=== PATIENT | female | born 1950 | race Caucasian/White ===

== ENCOUNTER → 2017-10-01 | Outpatient (RCR) | payer MEDICARE | LOC: OT 09-23 10:09 | PROVIDERS: ATTEND Specialist | DX: S52.502D Unspecified fracture of the lower end of left radius, subsequent encounter for closed fracture with routine healing (principal); M25.532 Pain in left wrist; M25.632 Stiffness of left wrist, not elsewhere classified; R53.1 Weakness | CPT/HCPCS: 97022 ×3; 97110 ×4; 97165; G8987; G8988 ==

== ENCOUNTER 2017-10-09 08:52 | Outpatient (RCR) | payer MEDICARE | END 2017-11-01 | LOC: OT 08:52 | PROVIDERS: ATTEND Specialist | DX: S52.502D Unspecified fracture of the lower end of left radius, subsequent encounter for closed fracture with routine healing (principal); M25.532 Pain in left wrist; M25.632 Stiffness of left wrist, not elsewhere classified; R53.1 Weakness | CPT/HCPCS: 97139 ==

== ENCOUNTER → 2018-12-25 | Day surgery (SDC) | payer MEDICARE ==
[~2018-12-25] MED LIST: ALEVE220 M1; FENTANYL CITRATE/PF 100MCG/2 ML INJ ONE; LEVOTHYROXINE50 MCG PO; LIVALO1 MG; MIDAZOLAM HCL 2 MG/2 ML VIAL ONE; MULTI-VITAMIN1 EACH; NIFEDIPINE10 MG PO; PRO AIR; PROPOFOL IV EMULSION 10 MG/ML 50 ML VIAL ONE; STOOL SOFTENER50 MG
--- OUTSIDE RECORDS SUMMARY | 2018-12-25 11:59 | XMS REPORT ---
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 Allergies, Adverse Reactions, Alerts Allergy Name Allergy Type Status Severity Reaction(s) Onset Date Inactive Date Treating Clinician Comments hydrocodone DA Active U 2017-07-08 00:00:00 acetaminophen DA Active U 2017-07-08 00:00:00 indomethacin DA Active U 2017-07-08 00:00:00 naproxen DA Active U 2017-07-08 00:00:00 Medications This patient has no known medications.
--- OUTSIDE RECORDS SUMMARY | 2018-12-25 11:59 | XMS REPORT | Summary of Care ---
Author Author Ana Maria Schneider LVN Organization Unknown Address [facility] Phone Unavailable Care Team Providers Care Agent Contract Clerk Name Role Phone FRANCIS Garg, ODELL Unavailable Unavailable ARIELLE Vargas, MAC Unavailable Unavailable TIM Garg, VINCENT Unavailable Unavailable NIKOS N.P., SEVEN Unavailable Unavailable Wyatt PERERA, Ana Maria Unavailable Unavailable TIM PHELPS [place], VINCENT REESE Unavailable Unavailable MATTHEW PHELPS [place], RYANN NUNO Unavailable Unavailable NIKOS TRIPATHI, SEVEN Unavailable Unavailable Unavailable Unavailable Functional Status Name Dates Details Functional status health issues are not documented Status: Name Dates Details Cognitive status health issues are not documented Status: Problems Name Dates Details Edema (782.3, R60.9) Status: Active Allergic rhinitis (477.9, J30.9) Status: Active Sacroiliitis (720.2, M46.1) Status: Active Screening for colon cancer (V76.51, Z12.11) Status: Active Lichen sclerosus (701.0, L90.0) Status: Active Encounter for mini-mental status examination Status: Active BMI 30.0-30.9,adult (V85.30, Z68.30) Status: Active Microscopic hematuria (599.72, R31.29) Status: Active Polyarthralgia (719.49, M25.50) Status: Active BMI 27.0-27.9,adult (V85.23, Z68.27) Status: Active Generalized osteoarthritis of multiple sites (715.09, M15.9) Status: Active Elevated creatine kinase (790.5, R74.8) Status: Active Acute nonintractable headache, unspecified headache type (784.0, R51) Status: Active Arthralgia of hand, left (719.44, M25.542) Status: Active Right ankle pain (719.47, M25.571) Status: Active Elevated sed rate (790.1, R70.0) Status: Active Right hand pain (729.5, M79.641) Status: Active Cellulitis, scalp, dissecting (704.8, L66.3) Status: Active Sebaceous cyst (706.2, L72.3) Status: Active Hordeolum externum of left eye, unspecified eyelid (373.11, H00.016) Status: Active Nasal vestibulitis (478.19, J34.89) Status: Active Right wrist pain (719.43, M25.531) Status: Active Ganglion cyst of wrist, right (727.41, M67.431) Status: Active 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, 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) Status: Active Venous stasis dermatitis (454.1, I87.2) Status: Active Well woman exam with routine gynecological exam (V72.31, Z01.419) Status: Active Mild intermittent asthma, uncomplicated (493.90, J45.20) Status: Active Post-menopausal (V49.81, Z78.0) Status: Active Osteoporosis screening (V82.81, Z13.820) Status: Active Need for hepatitis A vaccination (V05.3, Z23) Status: Active Osteopenia of both thighs (733.90, M85.851) Status: Active Acute upper respiratory infection (465.9, J06.9) Status: Active Vertigo (780.4, R42) Status: Active Acute tracheitis without airway obstruction (464.10, J04.10) Status: Active On potassium sparing diuretic therapy (V58.69, Z79.899) Status: Active Palmar fasciitis (728.6, M72.0) Status: Active Trigger ring finger of right hand (727.03, M65.341) Status: Active Mass of finger of right hand (782.2, R22.31) Status: Active Mass of finger of left hand (782.2, R22.32) Status: Active Acute lower UTI (599.0, N39.0) Status: Active Depression screening (V79.0, Z13.31) Status: Active At low risk for fall (V49.89, Z91.81) Status: Active Right foot pain (729.5, M79.671) Status: Active Hypertriglyceridemia (272.1, E78.1) Status: Active Urinary tract infection (599.0, N39.0) Status: Active Easy bruising (782.9, R23.8) Status: Active Mass of right foot (782.2, R22.41) Status: Active Herpes zoster (053.9, B02.9) Status: Active Mild persistent asthma without complication (493.90, J45.30) Status: Active Abnormal bone xray (793.7, R93.7) Status: Active Allergic urticaria (708.0, L50.0) Status: Active Onychomycosis of toenail (110.1, B35.1) Status: Active Need for shingles vaccine (V04.89, Z23) Status: Active Breast cancer screening (V76.10, Z12.39) Status: Active Need for influenza vaccination (V04.81, Z23) Status: Active Osteopenia (733.90, M85.80) Status: Active 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, 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) Status: Active 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, 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) Status: Active Dysuria (788.1, R30.0) Status: Active Low serum HDL (272.9, R74.8) Status: Active Contact dermatitis, allergic (692.9, L23.9) Status: Active On statin therapy (V58.69, Z79.899) Status: Active Essential (primary) hypertension (401.9, I10) Status: Active Mixed dyslipidemia (272.2, E78.2) Status: Active Hypothyroidism due to acquired atrophy of thyroid (244.8, E03.4) Status: Active Prediabetes (790.29, R73.03) Status: Active Encounter for monitoring statin therapy (V58.83, Z51.81) Status: Active On potassium wasting diuretic therapy (V58.69, Z79.899) Status: Active Elevated hemoglobin A1c measurement (790.29, R73.09) Status: Active Encounter to discuss test results (V65.49, Z71.2) Status: Active Generalized abdominal pain (789.07, R10.84) Status: Active Diarrhea, unspecified type (787.91, R19.7) Status: Active Blood in stool (578.1, K92.1) Status: Active Colon wall thickening (569.89, K63.9) Status: Active Medications Name Dates Details Levothyroxine Sodium 50 MCG Oral Tablet TAKE 1 TABLET BY MOUTH 6 DAYS A WEEK (SAT-SAT) AND 1.5 TABLETS 1 DAY A WEEK (Saturday) Quantity: 90 VINCENT DUMONT M.D. * Start : 25-Jun-2013 Active Montelukast Sodium 10 MG Oral Tablet TAKE 1 TABLET DAILY. PRN * Quantity: 90 Refills: 2 KNOTT N.P., SEVEN * Start : 05-Mar-2014 Active Flonase Allergy Relief 50 MCG/ACT Nasal Suspension USE 1 SPRAY IN EACH NOSTRIL TWICE DAILY. PRN * Quantity: 1 Refills: 3 NIKOS N.P., SEVEN * Start : 30-Oct-2014 Active 15.8 ML Bottle Aleve 220 MG Oral Capsule 2-3 tabs Twice daily. Con't dosing for 3-5 days beyond pain relief or 4 weeks ma x NEEDED * Refills: 0 ARIELLE N.P.MAC * Start : 30-Oct-2014 Active Symbicort 80-4.5 MCG/ACT Inhalation Aerosol INHALE 2 PUFFS BY MOUTH EVERY 12 HOURS. RINSE MOUTH AFTER USE * Quantity: 10.2 Refills: 0 VINCENT DUMONT M.D. * Start : 30-Sep-2018 Active ProAir HFA 108 (90 Base) MCG/ACT Inhalation Aerosol Solution INHALE 2 PUFFS EVERY 4-6 HOURS NEEDED. * Quantity: 1 Refills: 6 VINCENT DUMONT M.D. Active 8.5 GM Inhaler Voltaren 1 % Transdermal Gel APPLY TO LOWER EXTREMITIES, 4 GM OF GEL TO AFFECTED AREA 4 TIMES DAILY. DO NOT APPLY MORE THAN 16 GM DAILY TO ANY ONE AFFECTED JOINT. * Quantity: 1 Refills: 2 ODELL BLANCO M.D. * Start : 19-Jun-2016 Active 100 GM Tube Alive Womens 50+ TABS * Refills: 0 Active Shingrix 50 MCG Intramuscular Suspension Reconstituted INJECT 0.5 ML IM, please administer vaccine series per protocol * Quantity: 1 Refills: 1 VINCENT DUMONT M.D. * Start : 28-Jan-2018 Active NIFEdipine ER 30 MG Oral Tablet Extended Release 24 Hour TAKE 1 TABLET DAILY DIRECTED. * Quantity: 90 Refills: 1 TIM Garg, VINCENT * Start : 24-May-2018 Active Livalo 2 MG Oral Tablet Take half tablet daily * Quantity: 42 Refills: 0 GOODLEI Sy.Susanne., VINCENT Active Triamcinolone Acetonide 0.1 % External Ointment APPLY AND GENTLY MASSAGE INTO AFFECTED AREA(S) TWICE DAILY. * Quantity: 60 Refills: 1 NIKOS N.P., SEVEN * Start : 09-Aug-2018 Active Allergies and Adverse Reactions Name Dates Details Indocin CAPS (Allergy) Status: Active Naprosyn TABS (Allergy) Status: Active Vicodin TABS (Allergy) Status: Active Chocolate (Allergy) Status: Denied Eggs (Allergy) Status: Denied Milk (Allergy) Status: Denied Past Medical History Name Dates Details History of Acute upper respiratory infection (465.9, J06.9) Status: Resolved History of Advance care planning (V65.49, Z71.89) Status: Resolved History of Bone spur (726.91, M77.9) Status: Resolved History of Complete tear of rotator cuff (727.61, M75.120) Status: Resolved History of Depression screen (V79.0, Z13.31) Status: Resolved History of DJD (degenerative joint disease), multiple sites (715.89, M15.9) Status: Resolved History of essential hypertension (V12.59, Z86.79) Status: Resolved History of Greater trochanteric bursitis of left hip (726.5, M70.62) Status: Resolved History of Heel pain (729.5, M79.673) Status: Resolved History of Hematoma of scalp, initial encounter (920, S00.03XA) Status: Resolved History of hyperpigmentation of skin (V13.3, Z87.2) Status: Resolved History of hypothyroidism (V12.29, Z86.39) Status: Resolved History of Lumbar strain (847.2, S39.012A) Status: Resolved History of Malodorous urine (791.9, R82.90) Status: Resolved History of Myalgia and myositis (729.1) Status: Resolved History of Nail dystrophy (703.8, L60.3) Status: Resolved History of Need for pneumococcal vaccination (V03.82, Z23) Status: Resolved History of Need for vaccination with 13-polyvalent pneumococcal conjugate vaccine (V03.82, Z23) Status: Resolved History of Pain in limb (729.5, M79.609) Status: Resolved History of Pain, upper back (724.5, M54.9) Status: Resolved History of Persistent cough (786.2, R05) Status: Resolved History of Proximal leg weakness (729.89, R29.898) Status: Resolved History of Screening for diabetes mellitus (V77.1, Z13.1) Status: Resolved History of serous otitis media (V12.49, Z86.69) Status: Resolved History of Sprain of right shoulder (840.9, S43.401A) Status: Resolved History of tinea corporis (V12.09, Z86.19) Status: Resolved History of Toxicity From Vitamin B6 (963.5) Status: Resolved History of urinary frequency (V13.09, Z87.898) Status: Resolved History of Urticaria, acute (708.8, L50.8) Status: Resolved History of varicose veins of lower extremity (V12.59, Z86.79) Status: Resolved History of Well woman exam with routine gynecological exam (V72.31, Z01.419) Status: Resolved Procedures Procedure Dates Details CT Abdomen/Pelvis w contrast 28984 Date: 02-Dec-2018 History of Hysterectomy Completed Comments: Completed: Approx 1998 History of Shoulder Surgery Right Completed Comments: Completed: Approx 2004 History of Neck Surgery Completed Comments: Completed: Approx 2006 History of Cholecystectomy Completed Comments: Completed: Approx 1995 History of Neuroplasty Decompression Median Nerve At Carpal Tunnel Completed Comments: Completed: Approx 2006 Immunization Name Dates Details Pneumococcal polysaccharide vaccine, 23 valent on: 13-Jan-2009 Zoster (Zostavax) on: 23-May-2011 Tdap on: 22-Jan-2012 Prevnar 13 Intramuscular Suspension Lot #: [id number] on: 08-Oct-2014 Fluzone Quadrivalent 0.5 ML Intramuscular Suspension Lot #: [id number] on: 06-Dec-2015 Hepatitis A Lot #: [id number] on: 22-May-2016 Fluzone High-Dose 0.5 ML Intramuscular Suspension Prefilled Syringe Lot #: [id number] on: 19-Nov-2016 Hepatitis A, adult Lot #: [id number] on: 19-Nov-2016 Fluzone Quadrivalent 0.5 ML Intramuscular Suspension Lot #: [id number] on: 28-Jan-2018 Shingrix 50 MCG/0.5ML Intramuscular Suspension Reconstituted on: 02-May-2018 Shingrix 50 MCG/0.5ML Intramuscular Suspension Reconstituted on: 01-Sep-2018 Family History Name Dates Details Family history of Psoriatic arthritis (696.0, L40.50) Status: Active Name Dates Details Family history of Diabetes Mellitus (V18.0) Status: Active Name Dates Details Family history of Hypoglycemia Status: Active Family history of Acute Myocardial Infarction (V17.3) Status: Active Name Dates Details Family history of Diabetes Mellitus (V18.0) Status: Active Family history of Diabetes Mellitus (V18.0) Status: Active Social History Name Dates Details - Status: Name Dates Details Never smoker Vital Signs Date Test Result Details [id number]-[id number] Physical Findings 0 Status: Comments: Alcohol Screen - How many times in the past yr have you had 5 (for M) or 4 (for F) or 4 (for all > 65yrs) or more drinks in a day? 3-Qye-531854:46 BP Systolic 117 mm[Hg] Status: Comments: Location: LUE; Position: Sitting BP Diastolic 64 mm[Hg] Status: Comments: Location: LUE; Position: Sitting Height 61.5 in Status: Weight 161.25 lb Status: Body Mass Index Calculated 29.97 kg/m2 Status: Body Surface Area Calculated 1.73 m2 Status: Temperature 97.5 f Status: Comments: Method: Temporal Heart Rate 67 /min Status: Comments: Location: L Brachial Artery; Respiration Rate 16 /min Status: Results Date Description Value Details 7-Otz-856041:51 [O] Urine Dipstick (In Office) Glucose normal (Normal) LEUKOCYTES neg (Normal) NITRITE neg (Normal) UROBILINOGEN normal (Normal) PROTEIN neg (Normal) pH 5 URINE BLOOD trace (Normal) SPECIFIC GRAVITY 1.010 KETONES neg (Normal) BILIRUBIN normal (Normal) COLOR URINE yasir APPEARANCE clear 0-Fgg-373875:00 CT Abdomen/Pelvis w contrast 75380 Abdomen/Pelvis w contrast CT SEE NOTES Comments: Study: Abdomen/Pelvis w IV contrast CT 12/02/2018 2:00 PM CDTClinical Indication: - R19.7 Diarrhea, unspecified, R10.84 Generalizedabdominal pain;Comparison: NoneTECHNIQUE: Helical imaging was performed diaphragm through the symphysis withmultiplanar reformations obtained. CT imaging was performed with exposurecontrol parameters to reduce radiation dose.IV CONTRAST: 100cc Omnipaque 300 GI CONTRAST:CT Radiation Dose: LJM=153 mGy-cmFINDINGS:LOWER CHEST: Visualized lower lungs are clear. No pericardial or pleuraleffusion.SOLID ORGANS: Unremarkable appearance of liver, spleen, adrenal glands andpancreas. Status post cholecystectomy. The kidneys are without hydronephrosisor nephrolithiasis. Bilateral renal cortical scarring. Negative forhydronephrosis. The ureters are normal caliber and course withoutureterolithiasis.BOWEL: The small and large bowel are nonobstructed. There is abnormal softtissue in the region of the proximal ascending colon and cecum withcircumferential wall thickening. There is a few small adjacent pericecal lymphnodes. Normal appendix.PERITONEUM AND OTHER: No ascites or free air.RETROPERITONEUM: Abdominal aortic atherosclerosis without aneurysm. Smallreactive size retroperitoneal lymph nodes.PELVIS: Hysterectomy. No free fluid.MUSCULOSKELETAL: No aggressive appearing osteolytic or osteoblastic lesions.Multilevel lumbar spondylosis. Grade 1 image listhesis of L4-L5 with associatedcentral canal and foraminal narrowing.IMPRESSION:1. Marked colonic wall thickening in region of the proximal ascending colon andcecum.. Appearance is highly suspicious for neoplasm until proven otherwise.Colitis is also differential though colonoscopy is recommended exclude tumor.2. Abnormal appearance of the kidneys with cortical scarring. Appearance mayrepresent previous ischemic insult such as papillary necrosis.SL: VIDAL--Read by: Pasha Seals MDDictated Date/time: 12/02/18 16:04Electronically Signed by: Pasha Seals 12/[birth year]/1915:23FINAL REPORT [id number]:04 [[facility]] CMP W/EGFR GLUCOSE 109 mg/dl (Above high threshold) Range: 65-99 Comments: Fasting reference interval For someone without known diabetes, a glucose valuebetween 100 and 125 mg/dL is consistent withprediabetes and should be confirmed with afollow-up test. UREA NITROGEN (BUN) 11 mg/dl (Normal) Range: 7-25 CREATININE 0.64 mg/dl (Normal) Range: 0.60-0.93 Comments: For patients >49 years of age, the reference limitfor Creatinine is approximately 13% higher for peopleidentified as -[place]ij[place]. eGFR NON- 90 {ML/MIN/1.7} (Normal) Range: > OR=60 eGFR 105 {ML/MIN/1.7} (Normal) Range: > OR=60 BUN/CREATININE RATIO NOT APPLICABLE {CALC} Range: 6-22 SODIUM 136 mmol/L (Normal) Range: 135-146 POTASSIUM 4.5 mmol/L (Normal) Range: 3.5-5.3 CHLORIDE 99 mmol/L (Normal) Range: 98-110 CARBON DIOXIDE 27 mmol/L (Normal) Range: 20-32 CALCIUM 9.9 mg/dl (Normal) Range: 8.6-10.4 PROTEIN, TOTAL 8.3 g/dl (Above high threshold) Range: 6.1-8.1 ALBUMIN 4.4 g/dl (Normal) Range: 3.6-5.1 GLOBULIN 3.9 {G/DL__CALC} (Above high threshold) Range: 1.9-3.7 ALBUMIN/GLOBULIN RATIO 1.1 {CALC} (Normal) Range: 1.0-2.5 BILIRUBIN, TOTAL 0.8 mg/dl (Normal) Range: 0.2-1.2 ALKALINE PHSPHATASE 93 u/l (Normal) Range: 33-130 AST 23 u/l (Normal) Range: 10-35 ALT 19 u/l (Normal) Range: 6-29 6-Hnh-533152:04 [[facility]] CBC (INCLUDES DIFF/PLT) WHITE BLOOD CELL COUNT 13.1 {Thousand/u} (Above high threshold) Range: 3.8-10.8 RED BLOOD CELL COUNT 4.48 {Million/uL} (Normal) Range: 3.80-5.10 HEMAGLOBIN 13.3 g/dl (Normal) Range: 11.7-15.5 HEMATOCRIT 39.1 % (Normal) Range: 35.0-45.0 MCV 87.3 fL (Normal) Range: 80.0-100.0 MCH 29.7 pg (Normal) Range: 27.0-33.0 MCHC 34.0 g/dl (Normal) Range: 32.0-36.0 RDW 13.3 % (Normal) Range: 11.0-15.0 PLATELET COUNT 285 {Thousand/u} (Normal) Range: 140-400 MPV 10.2 fL (Normal) Range: 7.5-12.5 ABSOLUTE NEUTROPHILS 96549 {cells/uL} (Above high threshold) Range: 4472-1113 ABSOLUTE LYMPHOCYTES 1323 {cells/uL} (Normal) Range: 850-3900 ABSOLUTE MONOCYTES 642 {cells/uL} (Normal) Range: 200-950 ABSOLUTE EOSINOPHILS 66 {cells/uL} (Normal) Range: 15-500 ABSOLUTE BASOPHILS 26 {cells/uL} (Normal) Range: 0-200 NEUTROPHILS 84.3 % (Normal) LYMPHOCYTES 10.1 % (Normal) MONOCYTES 4.9 % (Normal) EOSINOPHILS 0.5 % (Normal) BASOPHILS 0.2 % (Normal) [id number]-[id number]:04 [[facility]] TSH, 3RD GENERATION W/REFLEX TO FT4 TSH, 3RD GENERATION W/REFLEX TO FT4 3.27 {MIU/L} (Normal) Range: 0.40-4.50 Plan of Care Name Dates Details Planned Observations Planned Goals not documented Planned Encounters Appointment; VINCENT DUMONT M.D. On: 13-Jan-2019 9:00 Instructions Name Dates Details Instructions not documented Encounters Appointment; VINCENT DUMONT M.D. Encounter Diagnosis: Problem not documented On: 29-Jan-2017 15:15 Appointment; SALLIE LUCERO M.D. Encounter Diagnosis: Problem not documented On: 19-Feb-2017 9:00 Appointment; SALLIE LUCERO M.D. Encounter Diagnosis: Problem not documented On: 02-Apr-2017 8:45 Appointment; VINCENT DUMONT M.D. Encounter Diagnosis: Problem not documented On: 23-Apr-2017 15:45 Appointment; VINCENT DUMONT M.D. Encounter Diagnosis: Problem not documented On: 20-May-2017 9:00 Appointment; VINCENT DUMONT M.D. Encounter Diagnosis: Problem not documented On: 30-May-2017 13:00 Appointment; SEVEN KNOTT NP Encounter Diagnosis: Problem not documented On: 07-Jun-2017 12:30 Appointment; LILLY MORILLO P.A. Encounter Diagnosis: Problem not documented On: 24-Dec-2017 8:30 Appointment; VINCENT DUMONT M.D. Encounter Diagnosis: Problem not documented On: 28-Jan-2018 14:15 Appointment; VINCENT DUMONT M.D. Encounter Diagnosis: Problem not documented On: 27-May-2018 9:30 Appointment; VINCENT DUMONT M.D. Encounter Diagnosis: Problem not documented On: 04-Jul-2018 8:30 Appointment; SEVEN KNOTT NP Encounter Diagnosis: Problem not documented On: 09-Aug-2018 9:15 Appointment; SEVEN KNOTT NP Encounter Diagnosis: Problem not documented On: 02-Dec-2018 11:00
[2018-12-25 14:05] VITALS: BP 113/69
--- NOTE | 2018-12-25 18:39 | Operative Report ---
DATE OF PROCEDURE: 12/25/2018 SURGEON: Lane Haro MD PROCEDURE PERFORMED: Colonoscopy. PREOPERATIVE DIAGNOSIS: Diarrhea, abnormal CAT scan, hematochezia. POSTOPERATIVE DIAGNOSIS: Diverticulosis, nonspecific colitis, and internal hemorrhoids. PREOPERATIVE MEDICATIONS: Consisted of IV sedation administered under MAC anesthesia. PROCEDURE IN DETAIL: Using an [employer] video colonoscope was inserted in the patient's rectum and advanced without difficulty to the level of the cecum. The colon was studied from that level back down to the rectum. No polypoid lesions, tumors, masses, or inflammatory changes were encountered. Random cold biopsies were obtained in the ascending colon, transverse colon, descending colon, sigmoid colon, and rectum, looking for microscopic colitis. Diverticula were present in the sigmoid and descending colon, but no evidence of diverticulitis. As we withdrew the colonoscope from the rectum, internal hemorrhoids were present, but not bleeding. The colonoscope was withdrawn from the patient's rectum and the procedure was ended. Lane Haro MD SAF/MODL /[id number]
== END | disposition home or self-care (01) ==
LOC: OR 11:57
PROVIDERS: ATTEND Internal Medicine Gastroenterology
DX: R93.5 Abnormal findings on diagnostic imaging of other abdominal regions, including retroperitoneum (principal); E03.9 Hypothyroidism, unspecified; I10 Essential (primary) hypertension; T78.49XA Other allergy, initial encounter; R10.30 Lower abdominal pain, unspecified; R19.4 Change in bowel habit; Z88.6 Allergy status to analgesic agent; Z88.5 Allergy status to narcotic agent; Z88.8 Allergy status to other drugs, medicaments and biological substances; Z91.018 Allergy to other foods; Z01.810 Encounter for preprocedural cardiovascular examination; E78.2 Mixed hyperlipidemia; Z86.010 Personal history of colon polyps; Z90.49 Acquired absence of other specified parts of digestive tract; Z82.49 Family history of ischemic heart disease and other diseases of the circulatory system; Z83.3 Family history of diabetes mellitus; K57.30 Diverticulosis of large intestine without perforation or abscess without bleeding; K52.9 Noninfective gastroenteritis and colitis, unspecified; K64.8 Other hemorrhoids
CPT/HCPCS: 45380; 93005; J2250; J2704; J3010; 45378